=== PATIENT | male | born 1980 | race Hispanic/Latino ===

== ENCOUNTER 2018-02-06 10:46 | Emergency (ER) | payer OTHER ==
[2018-02-06] MEDS ORDERED: NAPROXEN 500 MG TABLET ONE (11:07)
== END 2018-02-06 11:49 | disposition home or self-care (01) ==
LOC: EDH 10:46
DX: S76.812A Strain of other specified muscles, fascia and tendons at thigh level, left thigh, initial encounter (principal); E78.5 Hyperlipidemia, unspecified; X58.XXXA Exposure to other specified factors, initial encounter; Y93.89 Activity, other specified; Y92.89 Other specified places as the place of occurrence of the external cause; Y99.8 Other external cause status
CPT/HCPCS: 99282